=== PATIENT | female | born 1990 | race Caucasian/White ===

== ENCOUNTER 2018-05-24 21:53 | Emergency (ER) | payer OTHER ==
[2018-05-24] MEDS ORDERED: IPRATROPIUM/ALBUTEROL 3 ML DEYVIAL IH ONE (22:53)
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
[2018-05-24] MEDS ORDERED: ALBUTEROL INH PREPACK MDI TAKEHOME ONE (23:11)
[2018-05-24 23:55] VITALS: BP 112/78
== END 2018-05-24 23:55 | disposition home or self-care (01) ==
DX: T59.4X1A Toxic effect of chlorine gas, accidental (unintentional), initial encounter (principal); R05 Cough; R06.02 Shortness of breath; Y92.511 Restaurant or cafe as the place of occurrence of the external cause; Y99.0 Civilian activity done for income or pay